=== PATIENT | female | born 1990 | race Caucasian/White ===

== ENCOUNTER 2024-10-01 10:42 | Emergency (ER) | payer OTHER ==
[~2024-10-01] VITALS: Ht 162.6 cm; Wt 79.4 kg
[2024-10-01] MEDS: predniSONE 20 MG TAB PO ONE (12:13)
[2024-10-01] MEDS: diphenhydrAMINE 25MG CAP PO ONE (12:14)
[2024-10-01] MEDS: FAMOTIDINE 20 MG TAB PO ONE (12:14)
[2024-10-01] MEDS ORDERED: PRED20TA PO (12:18)
[2024-10-01 13:08] VITALS: BP 131/78; TEMP 97.9; O2SAT 100
== END 2024-10-01 13:12 | disposition home or self-care (01) ==
LOC: M ED 10:42
DX: L50.9 Urticaria, unspecified (principal); F10.10 Alcohol abuse, uncomplicated; Z79.52 Long term (current) use of systemic steroids
CPT/HCPCS: 99283; J7512